=== PATIENT | male | born 1940 | race Caucasian/White ===

== ENCOUNTER 2017-04-30 06:38 | Day surgery (SDC) | payer OTHER ==
[2017-04-29 15:47] VITALS: BMI 22.6
--- NOTE | 2017-04-30 07:37 | HP ---
Admitting History and Physical - Admission History of Present Illness: patient is a 77 y/o male with a past medical history of early parkinson's, NIDDM , hyperlipidemia, hypertension, and depression. Patient presents for ECT, this will be his first ECT treatment. Patient reports depression for the past 30 years. He denies any hospitalizations or suicidal attempts. 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 As a result, his depressive symptoms worsened and he was referred for ect. He was recently evaluated by his neurologist, Dr Knight and is being monitored for early parkinson's. Patient was evaluated by his advanced manufacturing engineer, Dr Lugo. Exercise stress test was completed 03/10/17, which was negative. patient denies any suicidal or homicidal ideation, visual or auditory hallucination. He does report compliance with prescribed medication. History Source: Patient, Family Member Limitations to Obtaining History: No Limitations - Past Medical History Cardiovascular: Yes: HTN, Hyperlipdemia - Past Surgical History Past Surgical History: Yes: None - Advance Directives Advance Directives: Yes: Living Will, Health Care Proxy - Smoking History Smoking history: Current every day smoker Have you smoked in the past 12 months: Yes Aproximately how many cigarettes per day: 7 - Alcohol/Substance Use Hx Alcohol Use: No Home Medications - Allergies Allergies/Adverse Reactions: Allergies Allergy/AdvReac Type Severity Reaction Status Date / Time No Known Drug Allergies Allergy Verified 04/29/17 15:22 - Home Medications Home Medications: Ambulatory Orders Aspirin [Durlaza] 162.5 mg PO DAILY 04/29/17 Cholecalciferol (Vitamin D3) [Vitamin D3 -] 1,000 unit PO HS 04/29/17 Dapagliflozin Propanediol [Farxiga] 5 mg PO DAILY 04/29/17 Desvenlafaxine Succinate [Pristiq ER] 100 mg PO DAILY 04/29/17 Fe/FA/Dha/Epa/Fad/Nadh/Be/Mv47 [Enlyte Softgel] 1 each PO HS 04/29/17 Multivit-Min/FA/Lycopen/Lutein [Centrum Silver Men Tablet] 1 each PO DAILY 04/29 Rosuvastatin Calcium [Crestor] 10 mg PO HS 04/29/17 Tamsulosin HCl [Flomax] 0.4 mg PO HS 04/29/17 Family Disease History - Family Disease History Family History: Unremarkable Review of Systems - Review of Systems Constitutional: reports: No Symptoms Eyes: reports: No Symptoms HENT: reports: No Symptoms Neck: reports: No Symptoms Cardiovascular: reports: No Symptoms Respiratory: reports: No Symptoms Gastrointestinal: reports: No Symptoms Genitourinary: reports: No Symptoms Breasts: reports: No Symptoms Reported Musculoskeletal: reports: No Symptoms Integumentary: reports: No Symptoms Neurological: reports: No Symptoms Endocrine: reports: No Symptoms Hematology/Lymphatic: reports: No Symptoms Psychiatric: reports: Depression Physical Examination Vital Signs: Vital Signs Period Temp Pulse Resp BP Sys/Sotelo Pulse Ox Last 24 Hr 97.6 F 72 18 112/70 99 Constitutional: Yes: Well Nourished, No Distress, Calm Eyes: Yes: WNL, Conjunctiva Clear, EOM Intact HENT: Yes: WNL, Atraumatic, Normocephalic Neck: Yes: WNL, Supple, Trachea Midline Cardiovascular: Yes: WNL, Regular Rate and Rhythm, S1, S2 Respiratory: Yes: WNL, Regular, CTA Bilaterally Gastrointestinal: Yes: WNL, Normal Bowel Sounds, Soft ...Rectal Exam: Yes: Deferred Renal/: Yes: WNL Breast(s): Yes: WNL Musculoskeletal: Yes: WNL Extremities: Yes: WNL Edema: No Peripheral Pulses WNL: Yes Peripheral Pulses: Left Radial: 4+, Right Radial: 4+, Left Doralis Pedis: 3+, Right Dorsalis Pedis: 3+, Left Femoral: 3+, Right Femoral: 3+ Integumentary: Yes: WNL Neurological: Yes: WNL, Alert, Oriented ...Motor Strength: WNL Psychiatric: Yes: WNL, Alert, Oriented Labs: CBC WBC 8.2 K/mm3 (4.0-10.8) 04/30/17 07:00 RBC 4.33 M/mm3 (4.00-5.60) 04/30/17 07:00 Hgb 14.7 GM/dl (11.7-16.9) 04/30/17 07:00 Hct 42.6 % (35.4-49) 04/30/17 07:00 MCV 98.4 fl (80-96) H 04/30/17 07:00 MCHC 34.4 g/dl (32.0-35.9) 04/30/17 07:00 RDW 13.2 % (11.9-15.9) 04/30/17 07:00 Plt Count 193 K/MM3 (134-434) 04/30/17 07:00 MPV 8.9 fl (7.5-11.1) 04/30/17 07:00 Neutrophils % 58.7 % (42.8-82.8) 04/30/17 07:00 Lymphocytes % 25.7 % (8-40) 04/30/17 07:00 Monocytes % 8.4 % (3.8-10.2) 04/30/17 07:00 Eosinophils % 5.7 % (0-4.5) H 04/30/17 07:00 Basophils % 1.5 % (0-2.0) 04/30/17 07:00 CMP Sodium 139 mmol/L (136-145) 04/30/17 07:00 Potassium 4.2 mmol/L (3.5-5.1) 04/30/17 07:00 Chloride 108 mmol/L (98-107) H 04/30/17 07:00 Carbon Dioxide 24 mmol/L (22-28) 04/30/17 07:00 Anion Gap 7 (8-16) L 04/30/17 07:00 BUN 18 mg/dl (7-18) 04/30/17 07:00 Creatinine 0.8 mg/dl (0.6-1.3) 04/30/17 07:00 Creat Clearance w eGFR > 60 (>60) 04/30/17 07:00 Random Glucose 113 mg/dl (74-106) H 04/30/17 07:00 Calcium 8.9 mg/dl (8.4-10.2) 04/30/17 07:00 Total Bilirubin 0.6 mg/dl (0.2-1.0) 04/30/17 07:00 AST 25 U/L (10-42) 04/30/17 07:00 ALT 21 U/L (10-40) 04/30/17 07:00 Alkaline Phosphatase 55 U/L (32-92) 04/30/17 07:00 Total Protein 6.1 g/dl (6.4-8.3) L 04/30/17 07:00 Albumin 3.4 g/dl (3.5-5.0) L 04/30/17 07:00 Imaging - Results EKG: Image Reviewed, Other (nsr with right BBB, anterior fasicular block) Other: Other (nuclear stress test, EJ 55%, negative ischemia) Assessment/Plan patient is 77 y/o male that presents for ect, he has received ect in the past and denies any adverse reaction to anesthesia. pt appears euvolemic on exam labs and ekg reviewed pt is low risk for procedure informed consent, risks/benefits to be obtained by Dr Hanks
[2017-04-30 07:53] LABS: ALBUMIN 3.4 g/dl (3.5-5.0); ALK PHOS 55 U/L (32-92); ANION GAP 7 (8-16); BASOPHIL 1.5 % (0-2.0); BILIRUBIN,TOTAL 0.6 mg/dl (0.2-1.0); CALCIUM 8.9 mg/dl (8.4-10.2); CO2 24 mmol/L (22-28); CREATININE 0.8 mg/dl (0.6-1.3); EOSINOPHIL 5.7 % (0-4.5); GLUCOSE,RANDOM 113 mg/dl (74-106); MCH 33.9 pg (25.7-33.7); MCHC 34.4 g/dl (32.0-35.9); MEAN CELL VOLUME 98.4 fl (80-96); MEAN PLT VOLUME 8.9 fl (7.5-11.1); NEUTROPHILS 58.7 % (42.8-82.8); PLATELET COUNT 193 K/MM3 (134-434); RDW 13.2 % (11.9-15.9); SGOT/AST 25 U/L (10-42); SGPT/ALT 21 U/L (10-40); TOT PROT 6.1 g/dl (6.4-8.3); WHITE BLOOD COUNT 8.2 K/mm3 (4.0-10.8)
--- NOTE | 2017-04-30 07:53 | EKG ---
Test Reason : Blood Pressure : / mmHG Vent. Rate : 069 BPM Atrial Rate : 069 BPM P-R Int : 172 ms QRS Dur : 100 ms QT Int : 428 ms P-R-T Axes : 070 -52 059 degrees QTc Int : 458 ms SINUS RHYTHM WITH OCCASIONAL PREMATURE VENTRICULAR COMPLEXES POSSIBLE LEFT ATRIAL ENLARGEMENT INCOMPLETE RIGHT BUNDLE BRANCH BLOCK LEFT ANTERIOR FASCICULAR BLOCK ABNORMAL ECG NO PREVIOUS ECGS AVAILABLE Confirmed by JAVIER MAIER, TIARA ([id number] on 04/30/2017 7:52:57 AM Referred By: Robbie Hanks Confirmed By:TIARA HERRERA MD
[2017-04-30] MEDS ORDERED: KETAMINE HCL 500 MG/10 ML VIAL ONE (08:33)
[2017-04-30 09:28] VITALS: TEMP 97.8
[2017-04-30 10:12] VITALS: BP 121/71; PULSE 61
== END 2017-04-30 10:15 | disposition home or self-care (01) ==
LOC: FECT 06:38
PROVIDERS: ATTEND Psychiatry & Neurology Psychiatry
PROC: GZB4ZZZ Other Electroconvulsive Therapy (ICD-10-PCS; principal; 2017-04-30 08:45)
DX: F32.0 Major depressive disorder, single episode, mild (principal)
CPT/HCPCS: 36415; 80053; 85025; 90870; 93005; 94760

== ENCOUNTER 2017-05-04 05:48 | Day surgery (SDC) | payer OTHER ==
[2017-04-30 11:10] VITALS: BMI 22.6
[2017-05-04] MEDS ORDERED: KETAMINE HCL 500 MG/10 ML VIAL ONE (07:25)
[2017-05-04] MEDS ORDERED: LACTATED RINGERS SOLUTION 1,000 ML IV SCH (08:00)
[2017-05-04 08:43] VITALS: TEMP 98
[2017-05-04 08:44] VITALS: BP 122/70; PULSE 64
[2017-05-04] MEDS ORDERED: PROMETHAZINE HCL 25 MG/1 ML VIAL IVPUSH PRN (09:51)
[2017-05-04] MEDS ORDERED: ONDANSETRON 4 MG/2 ML VIAL IVPUSH PRN (09:51)
== END 2017-05-04 08:45 | disposition home or self-care (01) ==
LOC: FECT 05:48
PROVIDERS: ATTEND Psychiatry & Neurology Psychiatry
PROC: GZB4ZZZ Other Electroconvulsive Therapy (ICD-10-PCS; principal; 2017-05-04 07:45)
DX: F33.2 Major depressive disorder, recurrent severe without psychotic features (principal)
CPT/HCPCS: 90870; 94760

== ENCOUNTER 2017-05-06 05:47 | Day surgery (SDC) | payer OTHER ==
[2017-04-30 11:15] VITALS: BMI 22.6
[2017-05-06] MEDS ORDERED: KETAMINE HCL 500 MG/10 ML VIAL ONE (07:28)
[2017-05-06 09:06] VITALS: TEMP 97.9
[2017-05-06 09:12] VITALS: BP 119/68; PULSE 68
== END 2017-05-06 09:05 | disposition home or self-care (01) ==
LOC: FECT 05:47
PROVIDERS: ATTEND Psychiatry & Neurology Psychiatry
PROC: GZB4ZZZ Other Electroconvulsive Therapy (ICD-10-PCS; principal; 2017-05-06 08:00)
DX: F32.9 Major depressive disorder, single episode, unspecified (principal)
CPT/HCPCS: 90870; 94760

== ENCOUNTER 2017-05-08 05:39 | Day surgery (SDC) | payer OTHER ==
[2017-05-04 17:54] VITALS: BMI 22.6
[2017-05-08] MEDS ORDERED: KETAMINE HCL 500 MG/10 ML VIAL ONE (08:05)
[2017-05-08 09:01] VITALS: TEMP 97.4
[2017-05-08 09:46] VITALS: BP 137/82; PULSE 88
== END 2017-05-08 09:48 | disposition home or self-care (01) ==
LOC: FECT 05:39
PROVIDERS: ATTEND Psychiatry & Neurology Psychiatry
PROC: GZB4ZZZ Other Electroconvulsive Therapy (ICD-10-PCS; principal; 2017-05-08 07:15)
DX: F33.9 Major depressive disorder, recurrent, unspecified (principal)
CPT/HCPCS: 90870; 94760

== ENCOUNTER 2017-05-11 05:43 | Day surgery (SDC) | payer OTHER ==
[2017-05-06 11:30] VITALS: BMI 22.6
[2017-05-11] MEDS ORDERED: KETAMINE HCL 500 MG/10 ML VIAL ONE (07:45)
[2017-05-11 08:42] VITALS: TEMP 97.6
[2017-05-11 09:09] VITALS: BP 140/78; PULSE 64
[2017-05-11] MEDS ORDERED: LACTATED RINGERS SOLUTION 1,000 ML IV SCH (09:30)
== END 2017-05-11 09:12 | disposition home or self-care (01) ==
LOC: FECT 05:43
PROVIDERS: ATTEND Psychiatry & Neurology Psychiatry
PROC: GZB4ZZZ Other Electroconvulsive Therapy (ICD-10-PCS; principal; 2017-05-11 07:45)
DX: F33.2 Major depressive disorder, recurrent severe without psychotic features (principal)
CPT/HCPCS: 90870; 94760

== ENCOUNTER 2017-05-13 05:36 | Day surgery (SDC) | payer OTHER ==
[2017-05-06 11:37] VITALS: BMI 22.6
[2017-05-13] MEDS ORDERED: KETAMINE HCL 500 MG/10 ML VIAL ONE (07:41)
[2017-05-13 08:49] VITALS: TEMP 98.2
[2017-05-13 09:25] VITALS: BP 130/84; PULSE 62
== END 2017-05-13 09:15 | disposition home or self-care (01) ==
LOC: FECT 05:36
PROVIDERS: ATTEND Psychiatry & Neurology Psychiatry
PROC: GZB4ZZZ Other Electroconvulsive Therapy (ICD-10-PCS; principal; 2017-05-13 07:15)
DX: F33.2 Major depressive disorder, recurrent severe without psychotic features (principal)
CPT/HCPCS: 90870; 94760

== ENCOUNTER 2017-05-18 05:38 | Day surgery (SDC) | payer OTHER ==
[2017-05-07 09:01] VITALS: BMI 22.6
[2017-05-18 07:25] VITALS: TEMP 97.7
[2017-05-18] MEDS ORDERED: ONDANSETRON 4 MG/2 ML VIAL IVPUSH PRN (07:29)
[2017-05-18] MEDS ORDERED: oxyCODONE HCL 5 MG TABLET PO PRN (07:29)
[2017-05-18] MEDS ORDERED: LACTATED RINGERS SOLUTION 1,000 ML IV SCH (07:30)
[2017-05-18] MEDS ORDERED: KETAMINE HCL 500 MG/10 ML VIAL ONE (08:35)
[2017-05-18 10:14] VITALS: BP 136/82; PULSE 58
== END 2017-05-18 10:15 | disposition home or self-care (01) ==
LOC: FECT 05:38
PROVIDERS: ATTEND Psychiatry & Neurology Psychiatry
PROC: GZB4ZZZ Other Electroconvulsive Therapy (ICD-10-PCS; principal; 2017-05-18 07:00)
DX: F33.2 Major depressive disorder, recurrent severe without psychotic features (principal)
CPT/HCPCS: 90870; 94760

== ENCOUNTER 2017-05-20 05:36 | Day surgery (SDC) | payer OTHER ==
[2017-05-07 09:13] VITALS: BMI 22.6
[2017-05-20] MEDS ORDERED: KETAMINE HCL 500 MG/10 ML VIAL ONE (08:39)
[2017-05-20] MEDS ORDERED: ONDANSETRON 4 MG/2 ML VIAL IVPUSH PRN (09:01)
[2017-05-20] MEDS ORDERED: PROMETHAZINE HCL 25 MG/1 ML VIAL IVPUSH PRN (09:01)
[2017-05-20] MEDS ORDERED: LACTATED RINGERS SOLUTION 1,000 ML IV SCH (09:15)
[2017-05-20 10:00] VITALS: TEMP 98.1
[2017-05-20 10:02] VITALS: BP 118/76; PULSE 60
== END 2017-05-20 10:05 | disposition home or self-care (01) ==
LOC: FECT 05:36
PROVIDERS: ATTEND Psychiatry & Neurology Psychiatry
PROC: GZB4ZZZ Other Electroconvulsive Therapy (ICD-10-PCS; principal; 2017-05-20 07:00)
DX: F33.2 Major depressive disorder, recurrent severe without psychotic features (principal)
CPT/HCPCS: 90870; 94760

== ENCOUNTER 2017-05-22 05:38 | Day surgery (SDC) | payer OTHER ==
[2017-05-07 12:03] VITALS: BMI 22.6
[2017-05-22 09:33] VITALS: TEMP 98
[2017-05-22 10:18] VITALS: BP 138/70; PULSE 66
[2017-05-22] MEDS ORDERED: LACTATED RINGERS SOLUTION 1,000 ML IV SCH (13:00)
== END 2017-05-22 10:20 | disposition home or self-care (01) ==
LOC: FECT 05:38
PROVIDERS: ATTEND Psychiatry & Neurology Psychiatry
PROC: GZB4ZZZ Other Electroconvulsive Therapy (ICD-10-PCS; principal; 2017-05-22 07:00)
DX: F33.2 Major depressive disorder, recurrent severe without psychotic features (principal)
CPT/HCPCS: 90870; 94760